=== PATIENT | male | born 1960 | race Caucasian/White ===

== ENCOUNTER 2017-02-26 15:54 | Outpatient (CLI) | payer OTHER ==
--- NOTE | 2017-02-27 09:35 | MRI Report ---
EXAM: LEFT KNEE MRI WITHOUT CONTRAST EXAM DATE: 02/26/2017 04:45 PM. CLINICAL HISTORY: Anterior left knee pain. COMPARISON: None. TECHNIQUE: Multiplanar, multisequence T1-weighted and fluid-sensitive sequences of the knee without c ontrast. Other: None. FINDINGS: Bones: Focal marrow edema is seen in the medial aspect of the patella and also the medial trochlear g roove with some subjacent marrow edema and subchondral cyst formation. Lesser amounts of marrow edema at the lateral trochlear groove. Small amount of subchondral cystic changes/edema seen at the child abuse worker ior weightbearing aspect of the medial femoral condyle. Articular Cartilage: Broad areas of grade 4 chondromalacia along the medial aspect of the medial gray llofemoral joint and, to a lesser amount of grade 2 chondromalacia at the lateral patellar facet. Mendoza e grade 2-3 chondromalacia seen at the weightbearing aspect lateral femoral condyle and posterior asp ect lateral femoral condyle. Medial Meniscus: The medial meniscus is intact. Lateral Meniscus: The lateral meniscus is intact. Cruciate Ligaments: The anterior and posterior cruciate ligaments are intact. Collateral Ligaments: The medial collateral and lateral collateral ligamentous structures are intact. Tendons: The quadriceps, patellar, semimembranosus, and popliteus tendons are unremarkable. Musculature: No edema or fatty atrophy. Other: No effusion. Tiny popliteal cyst. No loose bodies. The medial and lateral retinacula are inta ct. Subcutaneous edema is present. Some edema also seen in Hoffa's fat pad. IMPRESSION: 1. Focal marrow edema at the medial aspect of the patella and medial trochlear groove with subjacent subchondral cyst. This is associated with focal grade 4 chondromalacia as well. Also noted is some gr estefani 2-3 chondromalacia at the weightbearing aspect of the lateral femoral condyle. 2. Tiny popliteal cyst. Some subcutaneous edema is present. Small amount of edema in Hoffa's fat pad. 3. Menisci, cruciates, and collaterals appear unremarkable. [facility] MUSCULOSKELETAL RADIOLOGY SECTION Referring Provider Line: [phone] SITE ID: [id number]
== END 2017-02-26 15:55 | disposition home or self-care (01) ==
LOC: DI 15:54
DX: M22.42 Chondromalacia patellae, left knee (principal); M71.22 Synovial cyst of popliteal space [Baker], left knee

== ENCOUNTER 2017-09-25 16:30 | Outpatient (CLI) | payer OTHER ==
--- NOTE | 2017-09-26 07:50 | MRI Report ---
EXAM: MRI CERVICAL SPINE WITHOUT CONTRAST EXAM DATE: 09/25/2017 04:45 PM. CLINICAL HISTORY: 57-year-old with several month history of neck pain and pain radiating into the lef t arm and hand COMPARISONS: None. TECHNIQUE: Multiplanar, multisequence T1-weighted and fluid-sensitive sequences of the cervical spine without contrast. Other: None. FINDINGS: Neurologic Structures: The visualized posterior fossa structures are unremarkable. No signal abnormal ity in the visualized spinal cord. Alignment: No scoliosis or spondylolisthesis. Bone Marrow: There is minimal to mild endplate edema seen at C2-C3, C3-C4, C4-C5, and C5-C6 and may b e degenerative. No acute fracture. No marrow replacing lesion. Interspace Levels/Facets: C1-C2: Unremarkable. C2-C3: Mild degenerative change with Schmorl's node formation. Mild loss of disk height and disk barb ccation. Small posterior disk osteophyte complex. No spinal canal stenosis or neural foraminal narrow ing. C3-C4: Mild endplate degenerative change. Mild loss of disk height and disk desiccation. Small audio installer ior disk osteophyte complex. Right uncovertebral osteophyte and arthritic facet disease. Minimal to m ild spinal canal stenosis. Moderate to severe right neural foraminal narrowing. C4-C5: Mild endplate degenerative change. Minimal to mild loss of disk height and disk desiccation. S mall posterior disk osteophyte complex. Minimal bilateral uncovertebral osteophyte and arthritic face t disease. No spinal canal stenosis. Mild left neural foraminal narrowing. C5-C6: Mild to moderate endplate degenerative change and Schmorl's node formation. Moderate loss of d isk height and disk desiccation. Small posterior disk osteophyte complex. Bilateral uncovertebral ost eophyte and arthritic facet disease. Mild spinal canal stenosis. [id number] right and moderate to severe left neural foraminal narrowing. C6-C7: Mild degenerative change with Schmorl's confirmation. Mild to moderate loss of disk at the dis k desiccation. Small posterior disk osteophyte complex eccentric to the left. Bilateral uncovertebral osteophyte and arthritic facet disease greater on the left. Mild spinal canal stenosis and effacemen t of left lateral recess. Minimal right and moderate to severe left neural foraminal narrowing. C7-T1: Unremarkable. Musculature: Normal. No edema or fatty atrophy. Other: The paravertebral and prevertebral soft tissues are normal. IMPRESSION: 1. No T2 hyperintense lesion seen within the cervical cord. 2. Multilevel degenerative changes. C3-C4: Minimal to mild spinal canal stenosis. Moderate to severe right neural foraminal narrowing. C4-C5: No spinal canal stenosis. Mild left neural foraminal narrowing. C5-C6: Mild spinal canal stenosis. [id number]-[id number] right and moderate to severe left neural foramina l narrowing. C6-C7: Mild spinal canal stenosis and effacement of left lateral recess. Minimal right and moderate t o severe left neural foraminal narrowing. [facility] Referring Provider Line: [phone] SITE ID: [id number]
== END 2017-09-25 16:31 | disposition home or self-care (01) ==
LOC: DI 16:30
DX: M50.31 Other cervical disc degeneration, high cervical region (principal); M47.892 Other spondylosis, cervical region
CPT/HCPCS: 72141

== ENCOUNTER 2019-03-24 07:23 | Outpatient (CLI) | payer OTHER ==
[2019-03-24 07:43] LABS: BASOPHILS % (AUTO) 0.4 %; EOSINOPHILS # (AUTO) 0.1 10^3/uL (0.0-0.7); HGB - HEMOGLOBIN 14.6 g/dL (14.0-18.0); LYMPHOCYTES # (AUTO) 2.1 10^3/uL (1.5-3.5); LYMPHOCYTES % (AUTO) 26.4 %; MEAN CORPUSCULAR HGB CONC 33.3 g/dL (32.0-36.0); MEAN CORPUSCULAR VOLUME 90.1 fL (80.0-94.0); MEAN PLATELET VOLUME 9.8 fL (7.4-11.4); MONOCYTES # (AUTO) 0.5 10^3/uL (0.0-1.0); MONOCYTES % (AUTO) 6.1 %; NEUTROPHILS # (AUTO) 5.3 10^3/uL (1.5-6.6); PLT - PLATELET COUNT 221 10^3/uL (130-450); RED BLOOD COUNT 4.87 10^6/uL (4.70-6.10); RED CELL DISTRIBUTION WIDTH 12.6 % (12.0-15.0)
[2019-03-24 08:13] LABS: ALBUMIN 4.4 g/dL (3.2-5.5); ALBUMIN/GLOBULIN RATIO 1.4 (1.0-2.2); ALKALINE PHOSPHATASE 60 IU/L (42-121); ALT ALANINE AMINOTRANSFERASE 27 IU/L (10-60); AST ASPARTATE AMINOTRANSFERASE 24 IU/L (10-42); BILIRUBIN,TOTAL 0.6 mg/dL (0.2-1.0); BUN - BLOOD UREA NITROGEN 14 mg/dL (6-20); CALCIUM 9.6 mg/dL (8.5-10.3); CARBON DIOXIDE - CO2 26 mmol/L (21-32); CHLORIDE 100 mmol/L (101-111); CREATININE 0.9 mg/dL (0.6-1.2); GFR - MDRD 87 (>89); GLUCOSE 106 mg/dL (70-100); SODIUM 136 mmol/L (135-145); TOTAL PROTEIN 7.5 g/dL (6.7-8.2); VLDL CHOLESTEROL 31 mg/dL
[2019-03-24 08:14] LABS: CHOL/HDL RATIO 5.5 (<5.0); CHOLESTEROL 247 mg/dL; HDL CHOLESTEROL 45 mg/dL; LDL CHOLESTEROL,CALCULATED 171 mg/dL; LDL/HDL RATIO 3.8 (<3.6)
[2019-03-24 08:47] LABS: THYROID STIMULATING HORMONE 2.21 uIU/mL (0.34-5.60)
[2019-03-25 15:27] LABS: HEPATITIS C ANTIBODY NON-REACTIVE (NON-REACTIVE)
== END 2019-03-24 07:24 | disposition home or self-care (01) ==
LOC: LAB 07:23
PROVIDERS: ATTEND Internal Medicine
DX: E78.5 Hyperlipidemia, unspecified (principal); H93.19 Tinnitus, unspecified ear; Z12.5 Encounter for screening for malignant neoplasm of prostate; Z12.11 Encounter for screening for malignant neoplasm of colon; Z12.12 Encounter for screening for malignant neoplasm of rectum; E11.59 Type 2 diabetes mellitus with other circulatory complications; Z13.6 Encounter for screening for cardiovascular disorders
CPT/HCPCS: 36415; 80053; 80061; 82607; 83721; 84153; 84443; 85025; 86803

== ENCOUNTER 2019-04-08 07:58 | Outpatient (CLI) | payer OTHER ==
[2019-04-08] MEDS ORDERED: GADOBUTROL 10 MMOL/10 ML VIAL ONE (08:00)
[2019-04-08] MEDS ORDERED: GADOBUTROL 10 MMOL/10 ML VIAL IVP ONE (09:12)
--- NOTE | 2019-04-09 09:25 | MRI Report ---
Reason: BALANCE PROBLEM, TINNITUS Procedure Date: 04/08/2019 Accession Number: [id number] / [id number] Procedure: MRI - Brain W/WO CPT Code: FULL RESULT: EXAM: MRI BRAIN AND INTERNAL AUDITORY CANAL (IAC),WITHOUT AND WITH CONTRAST. EXAM DATE: 04/08/2019 09:07 AM. CLINICAL HISTORY: Balance problem, tinnitus. COMPARISON: None. TECHNIQUE: Multiplanar, multisequence T1-weighted and fluid-sensitive MRI sequences of the brain and IACs were performed. Other: None. IV Contrast: 7 mL Gadavist. FINDINGS: Brain Volume: Normal for age. Parenchyma/Dura: No acute hemorrhage, mass, or acute infarct.A lobular 8 mm cystic focus is seen at the level of the right globus pallidus. There is decreased T1 and increased T2 and FLAIR signal. Otherwise, there are a few scattered punctate foci of T2 FLAIR bright white matter signal noted in the cerebral hemispheres. No abnormal enhancement. Internal Auditory Canals (IACs): Normal. No cranial nerve lesion or inflammatory process identified. The inner ear structure are symmetric and unremarkable. Ventricles/Cisterns: The ventricles, sulci, and cisterns are unremarkable. No abnormal extra-axial fluid collection or hemorrhage. Orbits: Symmetric and unremarkable. Sella Turcica: The pituitary gland, cavernous sinuses, suprasellar cistern and optic chiasm are unremarkable. Vasculature: Normal signal flow void is seen in the major arterial structures at the skull base. The dural sinuses are patent and enhance normally. Sinuses: No acute sinus disease. Partial opacification is seen involving inferior mastoid air cells bilaterally. Bones: No focal pathologic appearing marrow signal changes. Other: The visualized nasopharynx and infratemporal fossa are unremarkable. IMPRESSION: 1. No acute intracranial abnormality. No acute infarct, mass, hemorrhage, or abnormal enhancement. 2. Oval 6 mm cystic focus in the right globus pallidus. This could represent sequela of old lacunar infarct rather than dilated perivascular space. 3. There are a few scattered punctate foci of T2 FLAIR bright white matter signal noted in the cerebral hemispheres. This is nonspecific. This can be seen in patients with migraine headaches. 4. Normal MRI of the IAC and posterior fossa. 5. Partial opacification is seen involving inferior mastoid air cells bilaterally. [facility]
== END 2019-04-08 07:59 | disposition home or self-care (01) ==
LOC: DI 07:58
PROVIDERS: ATTEND Internal Medicine
DX: H93.19 Tinnitus, unspecified ear (principal); R26.89 Other abnormalities of gait and mobility; G93.0 Cerebral cysts
CPT/HCPCS: 70553; A9585

== ENCOUNTER 2020-12-08 10:09 | Outpatient (CLI) | payer OTHER ==
[2020-12-08 14:25] LABS: BASOPHILS % (AUTO) 0.5 %; EOSINOPHILS # (AUTO) 0.1 10^3/uL (0.0-0.7); EOSINOPHILS % (AUTO) 0.9 %; LYMPHOCYTES # (AUTO) 1.7 10^3/uL (1.5-3.5); LYMPHOCYTES % (AUTO) 27.5 %; MEAN CORPUSCULAR HEMOGLOBIN 29.5 pg (27.0-31.0); MEAN CORPUSCULAR HGB CONC 31.8 g/dL (32.0-36.0); MEAN CORPUSCULAR VOLUME 92.6 fL (80.0-94.0); MEAN PLATELET VOLUME 10.7 fL (7.4-11.4); MONOCYTES # (AUTO) 0.3 10^3/uL (0.0-1.0); MONOCYTES % (AUTO) 5.2 %; NEUTROPHILS # (AUTO) 4.2 10^3/uL (1.5-6.6); NEUTROPHILS % (AUTO) 65.6 %; PLT - PLATELET COUNT 184 10^3/uL (130-450); RED BLOOD COUNT 4.75 10^6/uL (4.70-6.10); RED CELL DISTRIBUTION WIDTH 12.6 % (12.0-15.0); WHITE BLOOD COUNT 6.3 x10^3/uL (4.8-10.8)
[2020-12-08 15:45] LABS: ALBUMIN 4.8 g/dL (3.2-5.5); ALBUMIN/GLOBULIN RATIO 1.7 (1.0-2.2); ALKALINE PHOSPHATASE 49 IU/L (42-121); ALT ALANINE AMINOTRANSFERASE 37 IU/L (10-60); AST ASPARTATE AMINOTRANSFERASE 29 IU/L (10-42); BILIRUBIN,TOTAL 0.5 mg/dL (0.2-1.0); BUN - BLOOD UREA NITROGEN 14 mg/dL (6-20); CALCIUM 9.6 mg/dL (8.5-10.3); CARBON DIOXIDE - CO2 26 mmol/L (21-32); CHLORIDE 101 mmol/L (101-111); CHOL/HDL RATIO 4.8 (<5.0); CHOLESTEROL 305 mg/dL; CREATININE 0.9 mg/dL (0.6-1.2); GFR - MDRD 86 (>89); GLUCOSE 102 mg/dL (70-100); HDL CHOLESTEROL 63 mg/dL; LDL CHOLESTEROL,CALCULATED 219 mg/dL; LDL/HDL RATIO 3.5 (<3.6); POTASSIUM 3.8 mmol/L (3.5-5.0); SODIUM 138 mmol/L (135-145); TOTAL PROTEIN 7.6 g/dL (6.7-8.2); TRIGLYCERIDES 114 mg/dL; VLDL CHOLESTEROL 23 mg/dL
[2020-12-08 15:53] LABS: THYROID STIMULATING HORMONE 1.06 uIU/mL (0.34-5.60)
== END 2020-12-08 10:10 | disposition home or self-care (01) ==
LOC: LAB.S 10:09
PROVIDERS: ATTEND Physician Assistant
DX: K21.9 Gastro-esophageal reflux disease without esophagitis (principal); Z12.5 Encounter for screening for malignant neoplasm of prostate; Z79.899 Other long term (current) drug therapy; Z83.49 Family history of other endocrine, nutritional and metabolic diseases; Z82.49 Family history of ischemic heart disease and other diseases of the circulatory system; J30.2 Other seasonal allergic rhinitis; N40.0 Benign prostatic hyperplasia without lower urinary tract symptoms
CPT/HCPCS: 36415; 80053; 80061; 83721; 84153; 84443; 85025

== ENCOUNTER 2020-12-23 07:00 | Outpatient (CLI) | payer OTHER ==
--- NOTE | 2020-12-23 09:38 | XRAY Report ---
PROCEDURE: Shoulder 3 View LT INDICATIONS: SHOULDER IMPINGEMENT SYNDROME, L TECHNIQUE: 4 views of the shoulder were acquired. COMPARISON: None. FINDINGS: No fracture. Severe glenohumeral degenerative joint disease with subchondral sclerosis and spurring. Mild AC joint degeneration also present. Soft tissues: No suspicious soft tissue calcifications. IMPRESSION: Severe glenohumeral degenerative joint disease. Reviewed by: Ezio Madden MD on 12/23/2020 9:37 AM PDT Approved by: Ezio Madden MD on 12/23/2020 9:37 AM PDT Station ID: [id number]
== END 2020-12-23 23:59 | disposition home or self-care (01) ==
LOC: DI.N 07:00
PROVIDERS: ATTEND Physician Assistant
DX: M19.012 Primary osteoarthritis, left shoulder (principal)

== ENCOUNTER 2022-01-02 11:44 | Emergency (ER) | payer OTHER ==
--- NOTE | 2022-01-02 12:08 | ED Physician Documentation ---
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[employer]) Timing - onset: How many hours ago (1), Today (patient states it was already reported to the golf superintendent office.) Timing - duration: Hours (1) Timing - details: Abrupt onset Associated symptoms: No: Weakness, Numbness Similar symptoms before: Has not had sx before Review of Systems Skin: reports: Laceration (s) Neurologic: denies: Focal weakness, Numbness PD PAST MEDICAL HISTORY - Past Medical History Past Medical History: Yes Cardiovascular: None, Hypertension Respiratory: None Neuro: None Endocrine/Autoimmune: None GI: None : None HEENT: None Psych: None Musculoskeletal: None Derm: None - Past Surgical History Past Surgical History: Yes General: Cholecystectomy - Present Medications Home Medications: Ambulatory Orders Medication Instructions Recorded Confirmed Amox/Clav 875/125 [Augmentin] 1 each PO Q12H #10 tablet 01/02/22 - Allergies Allergies/Adverse Reactions: Allergies Allergy/AdvReac Type Severity Reaction Status Date / Time No Known Drug Allergies Allergy Verified 01/02/22 11:56 - Social History Does the pt smoke?: No Smoking Status: Former smoker Does the pt drink ETOH?: No Does the pt have substance abuse?: Yes Substance Use and Type: Marijuana - Immunizations Immunizations are current?: Yes PD ED PE NORMAL - Vitals Vital signs reviewed: Yes - General General: Alert and oriented X 3, No acute distress, Well developed/nourished - Derm Derm: Normal color, Warm and dry - Extremities Extremities: Other (right lower upper arm, just above the elbow on medial side, with tear laceration to fatty tissue without FB. Tis 2.5 cm length. ) - Neuro Neuro: Alert and oriented X 3, No motor deficit, No sensory deficit Results - Vitals Vitals: Vital Signs - 24 hr 01/02/22 01/02/22 11:56 13:07 Temperature 36.5 C Heart Rate 71 69 Respiratory 16 14 Rate Blood Pressure 166/76 H 146/78 H O2 Saturation 100 99 Oxygen O2 Source Room air Procedures - Laceration (location) right medial upper arm ust above elbow Length in cm: 2.5 Wound type: Curved, Into subcut fat Neurovascular status: Sensory intact, Motor intact, Vascular intact Tendon involvement: Tendon intact Anesthesia: Lidocaine 1% with epi Wound preparation: Irrigated copiously NS, Wound explored, To the base Skin layer closure: Nylon, Interrupted, Size #-0 - enter number (4), Sutures - enter # (7) Other: Patient tolerated well, No complications, Neurovascular intact, Dressing applied, Tetanus UTD PD MEDICAL DECISION MAKING - ED course Complexity details: considered differential, d/w patient Departure - Departure Disposition: Home, Self Care Clinical Impression: Elbow laceration, Dog bite of arm Condition: Stable Record reviewed to determine appropriate education?: Yes Instructions: ED Laceration Ext Sutr Stap Tape Prescriptions: Amox/Clav 875/125 [Augmentin] 1 each PO Q12H #10 tablet Comments: It is okay to wash and shower. Clean off the wound twice a day with soap and water, or peroxide and water. Apply some antibiotic ointment to it to keep it moist. Also to watch for signs of infection such as purulence, redness or increasing pain. Return to your primary care or the ER at the specified time for suture removal. Suture removal 10 to 12 days. Augmentin twice daily for 5 days to reduce the chance of infection. Tylenol or ibuprofen as needed for pains. Discharge Date/Time: 01/02/22 13:08
[2022-01-02] MEDS ORDERED: AMOX/CLAV 875 MG/125 MG TABLET PO STA (12:24)
[2022-01-02] MEDS ORDERED: IBUPROFEN 600 MG TABLET PO STA (12:24)
[2022-01-02 13:08] VITALS: BP 146/78
== END 2022-01-02 13:08 | disposition home or self-care (01) ==
LOC: ED 11:44
DX: S51.011A Laceration without foreign body of right elbow, initial encounter (principal); W54.0XXA Bitten by dog, initial encounter; Y99.0 Civilian activity done for income or pay; I10 Essential (primary) hypertension; Z87.891 Personal history of nicotine dependence
CPT/HCPCS: 12001; 99282; A9270; 1040M

== ENCOUNTER 2022-01-16 11:42 | Emergency (ER) | payer OTHER ==
[2022-01-16 11:51] VITALS: BP 145/81
--- NOTE | 2022-01-16 12:01 | ED Physician Documentation ---
PD HPI WOUND RECHECK - Stated complaint Stated Complaint: REMOVE STITCHES - Chief complaint Chief Complaint: Laceration - Histroy obtained from History obtained from: Patient - History of Present Illness Location: Right Upper Extremity Timing - onset: How many days ago (14) Associated symptoms: No: Fever, Redness, Swelling, Drainage, Pain Similar symptoms before: Diagnosis (laceration) Recently seen: Emergency Dept - Additional information Additional information: 61-year-old Rafael Ruggiero had a repair to a laceration in his right elbow done in the emergency department here 2 weeks ago. This occurred from a dog bite and the patient did take a 5-day course of Augmentin. He did get some abdominal discomfort with that but has no other complaints. He has come in now for suture removal.Denies any redness or swelling. Review of Systems Constitutional: denies: Fever Ears: denies: Ear pain Nose: denies: Congestion Throat: denies: Sore throat Respiratory: denies: Cough GI: denies: Vomiting Skin: reports: Laceration (s). denies: Rash Musculoskeletal: denies: Neck pain, Back pain PD PAST MEDICAL HISTORY - Past Medical History Cardiovascular: None, Hypertension Respiratory: None Neuro: None Endocrine/Autoimmune: None GI: None : None HEENT: None Psych: None Musculoskeletal: None Derm: None - Past Surgical History Past Surgical History: Yes General: Cholecystectomy - Present Medications Home Medications: Ambulatory Orders Medication Instructions Recorded Confirmed No Known Home Medications 01/16/22 01/16/22 - Allergies Allergies/Adverse Reactions: Allergies Allergy/AdvReac Type Severity Reaction Status Date / Time No Known Drug Allergies Allergy Verified 01/16/22 11:45 - Social History Does the pt smoke?: No Smoking Status: Former smoker Does the pt drink ETOH?: No Does the pt have substance abuse?: Yes - Immunizations Immunizations are current?: Yes PD ED PE NORMAL - Vitals Vital signs reviewed: Yes (Hypertensive) - General General: Alert and oriented X 3, No acute distress, Well developed/nourished - HEENT HEENT: Atraumatic, PERRL, EOMI - Respiratory Respiratory: No respiratory distress - Derm Derm: Normal color, Warm and dry, No rash - Extremities Extremities: Other (Thick eschar to the right elbow without evidence of surrounding erythema. Wound is explored along the margins of the wound without evidence of further sutures after suture removal) - Neuro Neuro: Alert and oriented X 3, router operator pin 2-12 intact, No motor deficit, No sensory deficit, Normal speech Eye Opening: Spontaneous Motor: Obeys Commands Verbal: Oriented GCS Score: 15 - Psych Psych: Normal mood, Normal affect Results - Vitals Vitals: Vital Signs - 24 hr 01/16/22 11:46 Temperature 36.1 C L Heart Rate 66 Respiratory 16 Rate Blood Pressure 145/81 H O2 Saturation 98 Oxygen O2 Source Room air PD MEDICAL DECISION MAKING - ED course ED course: There is an eschar over a 3 cm laceration to the right elbow. There is no surrounding erythema and there are 3 sutures that are visible these were all removed after undermining the eschar and the eschar is fully undermined on one side and partially undermined on the other side no further sutures are discovered. There were apparently 7 sutures placed. The patient knows that one of them may have come off in his shirt. Departure - Departure Disposition: 01 Home, Self Care Clinical Impression: Encounter for removal of sutures Condition: Stable Instructions: ED Wound Check Sutr Remove No Infec Follow-Up: Alecia Currie MD [Provider Admit Priv/Credential] - Discharge Date/Time: 01/16/22 12:00
== END 2022-01-16 12:00 | disposition home or self-care (01) ==
LOC: ED 11:42
DX: S51.011D Laceration without foreign body of right elbow, subsequent encounter (principal); W54.0XXD Bitten by dog, subsequent encounter; Z87.891 Personal history of nicotine dependence
CPT/HCPCS: 99281; 99282